=== PATIENT | female | born 1990 | race Asian ===

== ENCOUNTER 2024-06-22 14:19 | Emergency (ER) | payer BC ==
[~2024-06-22] VITALS: Ht 165.1 cm; Wt 65.0 kg
[2024-06-22 14:21] VITALS: TEMP 36.7; O2SAT 98
[2024-06-22 16:12] VITALS: BP 113/71; PULSE 84; RESP 18
[2024-06-22] MEDS: CYCLOBENZAPRINE 10MG TABLET PO ONE (16:12)
[2024-06-22] MEDS: KETOROLAC 30MG/ML VIAL IM ONE (16:12)
[2024-06-22] MEDS ORDERED: CYCL5TAB3 MT (16:32)
[2024-06-22] MEDS ORDERED: TOPUD MT (16:32)
== END 2024-06-22 17:09 | disposition home or self-care (01) ==
LOC: ER 14:19
DX: S39.012A Strain of muscle, fascia and tendon of lower back, initial encounter (principal); S16.1XXA Strain of muscle, fascia and tendon at neck level, initial encounter; R51.9 Headache, unspecified; Z79.899 Other long term (current) drug therapy; V49.9XXA Car occupant (driver) (passenger) injured in unspecified traffic accident, initial encounter; Y93.89 Activity, other specified; Y92.89 Other specified places as the place of occurrence of the external cause; Y99.8 Other external cause status
CPT/HCPCS: 99283; 81025; 72100; 96372; J1885